=== PATIENT | female | born 1995 | race Caucasian/White ===

== ENCOUNTER 2018-07-19 08:26 | Emergency (ER) | payer MEDICAID, OTHER ==
[~2018-07-19] VITALS: Ht 160 cm; Wt 80.0 kg
[2018-07-19 08:27] VITALS: Ht 160 cm; Wt 80.0 kg
--- NOTE | 2018-07-19 09:04 | ERD ---
ER Documentation Chief Complaint Chief Complaint pt bib family with c/o lower abd/pelvic pain and sob this am, HX IUD HPI 23-year-old female ambulatory to the ED complaining of acute onset of severe, sharp and crampy right-sided upper abdominal pain since last night. Pain is exacerbated by movement and breathing. Denies nausea, vomiting, diarrhea or constipation. No dysuria, polyuria, hematuria or flank pain. Denies vaginal discharge or bleeding. Denies chest pain, palpitations, shortness of breath, cough or sputum production. No fevers or chills. ROS All systems reviewed and are negative except as per history of present illness. Medications Home Meds Active Scripts Hydrocodone/Acetaminophen ([place] 5-325 Tablet) 1 Each Tablet, 1 TAB PO Q6H PRN for PAIN LEVEL 6-10, #7 TAB Prov:GEOVANNI ERICKSON MD 07/19/18 Ibuprofen* (Motrin*) 600 Mg Tab, 600 MG PO Q6, #20 TAB Prov:GEOVANNI ERICKSON MD 07/19/18 Allergies Allergies: Coded Allergies: No Known Allergy (Unverified , 08/28/14) PMhx/Soc Reviewed in chart. As per HPI. History of Surgery: No Anesthesia Reaction: No Hx Neurological Disorder: No Hx Respiratory Disorders: Yes (ASTHMA) Hx Cardiac Disorders: No Hx Psychiatric Problems: Yes (ADD/ADHD) Hx Miscellaneous Medical Probl: No Hx Alcohol Use: Yes (occassional) Hx Substance Use: No Hx Tobacco Use: No FmHx No stroke or cancer Physical Exam Vitals Vital Signs Date Temp Pulse Resp B/P (MAP) Pulse Ox O2 O2 Flow FiO2 Time Delivery Rate 07/19/18 97.9 88 18 115/65 99 Room Air 12:10 (82) 07/19/18 97.8 122 20 133/68 99 08:27 (89) Physical Exam Const: Moderate distress due to pain. Head: Atraumatic Eyes: Normal Conjunctiva. Anicteric. ENT: Normal External Ears, Nose and Mouth. Neck: Full range of motion. No meningismus. Resp: Clear to auscultation bilaterally Cardio: Regular rate and rhythm, no murmurs Abd: Soft, right upper quadrant tenderness without rebound or guarding. No right lower quadrant or left lower quadrant tenderness. Skin: No petechiae or rashes Back: No midline or flank tenderness Ext: No cyanosis, or edema Neur: Awake and alert Psych: Normal Mood and Affect Result Diagram: 07/19/1892907/19/18929 Results 24 hrs Laboratory Tests Test 07/19/18 09:30 07/19/18 09:35 White Blood Count 9.6 10^3/ul Red Blood Count 3.99 10^6/ul Hemoglobin 12.1 g/dl Hematocrit 36.2 % Mean Corpuscular Volume 90.7 fl Mean Corpuscular Hemoglobin 30.3 pg Mean Corpuscular Hemoglobin Concent 33.4 g/dl Red Cell Distribution Width 12.9 % Platelet Count 309 10^3/UL Mean Platelet Volume 10.3 fl Immature Granulocytes % 0.400 % Neutrophils % 77.3 % Lymphocytes % 14.0 % Monocytes % 7.7 % Eosinophils % 0.4 % Basophils % 0.2 % Nucleated Red Blood Cells % 0.0 /100WBC Immature Granulocytes # 0.040 10^3/ul Neutrophils # 7.4 10^3/ul Lymphocytes # 1.4 10^3/ul Monocytes # 0.7 10^3/ul Eosinophils # 0.0 10^3/ul Basophils # 0.0 10^3/ul Nucleated Red Blood Cells # 0.0 10^3/ul Urine Color YELLOW Urine Clarity SLIGHTLY CLOUDY Urine pH 5.0 Urine Specific [place] 1.024 Urine Ketones NEGATIVE mg/dL Urine Nitrite NEGATIVE mg/dL Urine Bilirubin NEGATIVE mg/dL Urine Urobilinogen 1+ mg/dL Urine Leukocyte Esterase NEGATIVE Arthur/ul Urine Microscopic RBC 2 /HPF Urine Microscopic WBC 1 /HPF Urine Squamous Epithelial Cells FEW /HPF Urine Hemoglobin 1+ mg/dL Urine Glucose NEGATIVE mg/dL Urine Total Protein NEGATIVE mg/dl Sodium Level 138 mmol/L Potassium Level 3.7 mmol/L Chloride Level 104 mmol/L Carbon Dioxide Level 25 mmol/L Anion Gap 9 Blood Urea Nitrogen 13 mg/dl Creatinine 0.53 mg/dl Est Glomerular Filtrat Rate mL/min > 60 mL/min Glucose Level 84 mg/dl Calcium Level 9.1 mg/dl Total Bilirubin 0.3 mg/dl Direct Bilirubin 0.00 mg/dl Indirect Bilirubin 0.3 mg/dl Aspartate Amino Transf (AST/SGOT) 42 IU/L Alanine Aminotransferase (ALT/SGPT) 49 IU/L Alkaline Phosphatase 76 IU/L Total Protein 7.6 g/dl Albumin 4.1 g/dl Globulin 3.50 g/dl Albumin/Globulin Ratio 1.17 Lipase 42 U/L POC Beta HCG, Qualitative NEGATIVE Current Medications Medications Dose Sig/Mayela Start Time Status Last (Trade) Ordered Route PRN Stop Time Admin Dose Reason Admin Sodium 1,000 ml @ Q1H STAT 07/19/18 DC 07/19/18 Chloride 1,000 mls/hr IV 09:12 09:51 07/19/18 10:11 Morphine 4 mg ONCE STAT 07/19/18 DC 07/19/18 Sulfate IV 09:12 09:54 (morphine) 07/19/18 09:13 Ondansetron 4 mg ONCE STAT 07/19/18 DC 07/19/18 HCl (Zofran IV 09:12 09:53 Inj) 07/19/18 09:13 Procedures/MDM DOCUMENTS REVIEWED: ED nurse, prior records IMAGING: PROCEDURE: US Abdomen. CLINICAL INDICATION: Abdominal Pain TECHNIQUE: Multiple real-time images were acquired of the patient's abdomen and retroperitoneum utilizing a high resolution transducer. COMPARISON: None FINDINGS: The liver is of normal size, contour and echogenicity with no mass or intrahepatic ductal dilatation. Portal and hepatic vein are patent on color flow Doppler imaging. The common bile duct measures 3.5 millimeter in transverse diameter. stones are present in the lumen of the gallbladder. Gallbladder wall is not thickened and no abnormal pericholecystic fluid collection is seen. A+ sonographic Donnelly's sign was elicited during this exam. There is no ascites. The pancreas is normal with no mass or ductal dilatation. The right kidney measures 10.7 in length. No hydronephrosis, calculus or mass is visualized. . There is no evidence of abdominal aortic aneurysm or caval thrombosis. IMPRESSION: Cholelithiasis with positive sonographic Donnelly's sign but no wall thickening or pericholecystic fluid. Findings are equivocal for acute cholecystitis. Clinical correlation suggested. Consider scintigraphy to rule out cystic duct obstruction if clinically indicated. No evidence of biliary obstruction. .Ruddy Shepard MD, MD Date Time Electronically viewed and signed by .Ruddy Shepard MD, on 07/19/2018 09: 59 .A/ REEXAMINATION/REEVALUATION: Time: 11:29. Doing well. Pain resolved. Abdomen soft nontender. MEDICAL DECISION MAKIN-year-old female ambulatory to the ED complaining of acute onset of severe, sharp and crampy right-sided upper abdominal pain since last night. CBC unremarkable for leukocytosis or anemia. Chemistry negative for electrolyte abnormalities or renal insufficiency. LFTs negative for hyperbilirubinemia, transaminitis or elevated alk phosphatase. Lipase is normal. Not . Ultrasound reveals cholelithiasis but no gallbladder wall thickening, pericholecystic fluid or CBD dilatation. Although there is a positive sonographic Donnelly sign no other evidence of acute cholecystitis, cholangitis or choledocholithiasis. No evidence of pancreatitis. Pain resolved with intravenous hydration, antiemetics and analgesics. Stable for discharge with precautionary instructions and outpatient follow-up as counseled. Counseled patient and family regarding diagnostic workup, diagnosis and need for followup. Understands to return to ED if symptoms recur, worsen or any other concerns. Departure Diagnosis: Primary Impression: Acute abdominal pain in right upper quadrant Additional Impressions: Cholelithiasis Cholelithiasis location: gallbladder Cholecystitis presence: without cholecystitis Biliary obstruction: without biliary obstruction Qualified Codes: K80.20 - Calculus of gallbladder without cholecystitis without obstru ction Biliary colic Condition: Stable (Improved) GEOVANNI ERICKSON MD Jul 19, 2018 09:04
[2018-07-19] MEDS ORDERED: ONDANSETRON 4 MG INJ IV STA (09:12)
[2018-07-19] MEDS ORDERED: SOD CHLORIDE 0.9% 1,000 ML IV STA (09:12)
[2018-07-19] MEDS ORDERED: morphine 4 MG/ML VIAL IV STA (09:12)
[2018-07-19] MEDS ORDERED: IBUP-1542 PO (11:50)
[2018-07-19] MEDS ORDERED: HYDR-4011 PO (11:50)
[2018-07-19 12:10] VITALS: BP 115/65; PULSE 88; RESP 18
== END 2018-07-19 12:11 | disposition home or self-care (01) ==
LOC: E/R 08:26
DX: K80.20 Calculus of gallbladder without cholecystitis without obstruction (principal); R10.2 Pelvic and perineal pain; J45.909 Unspecified asthma, uncomplicated
CPT/HCPCS: 36415; 76705; 80053; 81001; 81025; 83690; 85025; 96361; 96374; 96375; J2270; J2405; J7030; Z7502